=== PATIENT | female | born 1955 | race Caucasian/White ===

== ENCOUNTER → 2016-11-23 | Outpatient (REF) | payer OTHER ==
[2016-11-23 13:56] LABS: ALBUMIN/GLOBULIN RATIO 1.25 (1.00-1.93); ALKALINE PHOSPHATASE 81 U/L (45-117); ALT/SGPT 38 U/L (12-78); ANION GAP 9 MEQ/L (8-16); AST/SGOT 23 U/L (15-37); BILIRUBIN,TOTAL 0.7 MG/DL (0.2-1.0); BLOOD UREA NITROGEN 12 MG/DL (7-18); CARBON DIOXIDE LEVEL 26 MEQ/L (21-32); CHLORIDE LEVEL 107 MEQ/L (98-107); CHOLESTEROL LEVEL 222 MG/DL (<200); CREATININE FOR GFR 0.82 MG/DL (0.55-1.02); GLOMERULAR FILTRATION RATE > 60.0 (>45); GLUCOSE, FASTING 92 MG/DL (80-110); POTASSIUM SERUM 4.5 MEQ/L (3.5-5.1); SODIUM LEVEL 142 MEQ/L (136-145); TOTAL PROTEIN 7.2 GM/DL (6.4-8.2); TRIGLYCERIDES LEVEL 83 MG/DL (<150)
[2016-11-23 14:17] LABS: MEAN CORPUSCULAR HEMOGLOBIN 30.2 pg (27.0-33.0); MEAN CORPUSCULAR VOLUME 91.4 fl (80.0-96.0); RED CELL DISTRIBUTION WIDTH 12.7 % (11.5-14.5); WHITE BLOOD COUNT 7.7 K/mm3 (4.0-10.0)
== END ==
LOC: M SFHCPLAZ 10:15
PROVIDERS: ATTEND Nurse Practitioner Adult Health
DX: Q61.5 Medullary cystic kidney (principal); M81.0 Age-related osteoporosis without current pathological fracture; R73.01 Impaired fasting glucose; E78.00 Pure hypercholesterolemia, unspecified

== ENCOUNTER → 2016-12-28 | Outpatient (CLI) | payer OTHER ==
--- NOTE | 2016-12-28 11:30 | REPMRS ---
Patient History The patient states she had a clinical breast exam in 12/2016. Patient is postmenopausal. Family history of colorectal cancer in niece at age 50 or over. Benign US guided breast biopsy of the left breast. Digital Woman Screen Mammo: December 28, 2016 - Exam #: [id number] Bilateral CC and MLO view(s) were taken. Technologist: Ayala Redman, Technologist Prior study comparison: September 19, 2015, digital woman screen mammo performed at [facility]. May 15, 2013, digital woman screen mammo performed at [facility]. April 07, 2011, bilateral bilat screen digital mammo performed at [facility]. FINDINGS: There are scattered fibroglandular densities. There has been no change in the appearance of the mammogram from the prior studies. There is a mild amount of residual fibroglandular tissue which is fairly symmetric. There is no interval development of dominant mass, architectural distortion, or clustered microcalcification suggestive of malignancy. Stereotactic clip at 3 o'clock left breast close to chest wall and unchanged from priors is again noted. Scattered lymph nodes are seen in the right axilla. There are scattered, small, benign calcifications of doubtful clinical significance. There are benign left breast arterial calcifications noted. No significant changes when compared with prior studies. ASSESSMENT: BI-RADS/ACR category 2 mammogram. Benign finding(s). Recommendation Routine screening mammogram in 1 year (for women over age 40). This mammogram was interpreted with the aid of an FDA-approved computer-aided dectection system. A. Negative x-ray reports should not delay biopsy if a dominant or clinically suspicious mass is present. B. Four to eight percent of cancers are not identified by mammography. C. Adenosis and dense breast may obscure an underlying neoplasm. Electronically Signed By: Ramses Amador MD 12/28/16 [id number]
== END ==
LOC: M WHC 10:04
PROVIDERS: ATTEND Nurse Practitioner Family
DX: Z12.31 Encounter for screening mammogram for malignant neoplasm of breast (principal)

== ENCOUNTER → 2016-12-28 | Outpatient (CLI) | payer OTHER ==
--- NOTE | 2016-12-29 08:25 | DEXA ---
AP SPINE L1 - L4 0.899 -2.4 -1.1 LT FEMUR TOTAL 0.843 -1.3 -0.4 RT FEMUR TOTAL 0.814 -1.5 -0.6 TOTAL BODY TOTAL OTHER DUAL FEMUR FRAX* ASSESSMENT Risk factors: History of adult fracture. 10 year probability of fracture Major osteoporotic fracture 18.6 % Hip fracture 3.1 % COMMENTS: There is low bone density of the spine. There is low bone density of the left hip. There is low bone density of the right hip. The increased density of the spine does not represent a significant change since 04/28/2011. The increased density of the left hip does represent a significant change since 04/28/2011. The decreased density of the right hip does not represent a significant change. The density of the spine has decreased 5.4% since the initial exam on 2007. The spine density has increased 0.3% since the most recent exam on 04/28/2011. The density of the left hip has decreased 6.4% since the initial exam on 2007. The density of the left hip has increased 2.2% since the most recent exam on . The density of the right hip has decreased 4.8% since the initial exam on 2007. The density of the right hip has decreased 0.2% since the most recent exam on . FOLLOW-UP: Recommendation for the next bone density exam: 2 years. YOHANNES
== END ==
LOC: M WHC 10:06
PROVIDERS: ATTEND Internal Medicine
DX: M81.0 Age-related osteoporosis without current pathological fracture (principal)

== ENCOUNTER → 2017-08-30 | Outpatient (REF) | payer OTHER ==
[2017-08-30 13:03] LABS: MEAN CORPUSCULAR HEMOGLOBIN 29.9 pg (27.0-33.0); MEAN CORPUSCULAR HGB CONC 32.8 g/dl (32.0-36.5); MEAN CORPUSCULAR VOLUME 91.2 fl (80.0-96.0); PLATELET COUNT, AUTOMATED 240 10^3/uL (150-450); RED CELL DISTRIBUTION WIDTH 12.6 % (11.5-14.5); WHITE BLOOD COUNT 6.5 10^3/uL (4.0-10.0)
[2017-08-30 13:31] LABS: ALBUMIN 3.9 GM/DL (3.2-5.2); ALKALINE PHOSPHATASE 76 U/L (45-117); ALT/SGPT 33 U/L (12-78); ANION GAP 9 MEQ/L (8-16); AST/SGOT 20 U/L (7-37); BILIRUBIN,TOTAL 0.7 MG/DL (0.2-1.0); BLOOD UREA NITROGEN 12 MG/DL (7-18); CALCIUM LEVEL 9.3 MG/DL (8.8-10.2); CARBON DIOXIDE LEVEL 29 MEQ/L (21-32); CHLORIDE LEVEL 106 MEQ/L (98-107); CHOLESTEROL LEVEL 248 MG/DL (<200); CREATININE FOR GFR 0.78 MG/DL (0.55-1.02); GLOMERULAR FILTRATION RATE > 60.0 (>45); GLUCOSE, FASTING 92 MG/DL (80-110); POTASSIUM SERUM 4.1 MEQ/L (3.5-5.1); SODIUM LEVEL 144 MEQ/L (136-145); TOTAL PROTEIN 6.5 GM/DL (6.4-8.2); TRIGLYCERIDES LEVEL 99 MG/DL (<150)
== END ==
LOC: M SFHCPLAZ 08:24
PROVIDERS: ATTEND Internal Medicine
DX: Z00.00 Encounter for general adult medical examination without abnormal findings (principal); Q61.5 Medullary cystic kidney; N20.0 Calculus of kidney; E78.00 Pure hypercholesterolemia, unspecified

== ENCOUNTER → 2017-12-14 | Outpatient (REF) | payer OTHER ==
[2017-12-14 14:22] LABS: APPEARANCE, URINE HAZY (CLEAR); BACTERIA, URINE AUTO NEGATIVE (NEGATIVE); BILIRUBIN, URINE AUTO NEGATIVE (NEGATIVE); BLOOD, URINE BLOOD 1+ (NEGATIVE); CALCIUM OXALATE CRYSTALS LARGE; COLOR, URINE YELLOW (YELLOW); GLUCOSE, URINE (UA) AUTO NEGATIVE (NEGATIVE); KETONE, URINE AUTO NEGATIVE (NEGATIVE); LEUKOCYTE ESTERASE, URINE AUTO 1+ (NEGATIVE); NITRITE, URINE AUTO NEGATIVE (NEGATIVE); PROTEIN, URINE AUTO NEGATIVE (NEGATIVE); RBC, URINE AUTO 3 /HPF (0-3); SPECIFIC GRAVITY URINE AUTO 1.014 (1.002-1.035); SQUAMOUS EPITHELIAL CELL UR AU 0 /HPF (0-6); UROBILINOGEN, URINE AUTO 0.2 mg/dL (0.0-2.0); WBC, URINE AUTO 12 /HPF (0-3)
== END ==
LOC: M SMT 13:17
DX: R10.9 Unspecified abdominal pain (principal)
CPT/HCPCS: 81001

== ENCOUNTER → 2017-12-15 | Outpatient (CLI) | payer OTHER | LOC: M RAD 14:00 | DX: R10.9 Unspecified abdominal pain (principal); Q61.5 Medullary cystic kidney; Z87.442 Personal history of urinary calculi ==

== ENCOUNTER → 2018-01-01 | Outpatient (CLI) | payer OTHER ==
[2018-01-01 14:03] LABS: HEMATOCRIT 43.1 % (36.0-47.0); HEMOGLOBIN 14.4 g/dl (12.0-15.5); MEAN CORPUSCULAR HEMOGLOBIN 30.4 pg (27.0-33.0); MEAN CORPUSCULAR HGB CONC 33.4 g/dl (32.0-36.5); MEAN CORPUSCULAR VOLUME 90.9 fl (80.0-96.0); PLATELET COUNT, AUTOMATED 242 10^3/uL (150-450); RED BLOOD COUNT 4.74 10^6/uL (4.00-5.40); RED CELL DISTRIBUTION WIDTH 12.6 % (11.5-14.5); WHITE BLOOD COUNT 8.2 10^3/uL (4.0-10.0)
[2018-01-01 14:19] LABS: ANION GAP 7 MEQ/L (8-16); BLOOD UREA NITROGEN 20 MG/DL (7-18); CALCIUM LEVEL 9.2 MG/DL (8.8-10.2); CARBON DIOXIDE LEVEL 30 MEQ/L (21-32); CHLORIDE LEVEL 105 MEQ/L (98-107); GLOMERULAR FILTRATION RATE > 60.0 (>45); GLUCOSE, FASTING 111 MG/DL (70-100); INR 0.87; POTASSIUM SERUM 3.7 MEQ/L (3.5-5.1); PROTHROMBIN TIME 11.9 SECONDS (12.4-14.5); SODIUM LEVEL 142 MEQ/L (136-145)
[2018-01-01 14:20] LABS: PARTIAL THROMBOPLASTIN TIME 26.6 SECONDS (26.8-37.9)
== END ==
LOC: M LAB 12:47
DX: Z01.812 Encounter for preprocedural laboratory examination (principal); N13.2 Hydronephrosis with renal and ureteral calculous obstruction
CPT/HCPCS: 71046

== ENCOUNTER → 2019-07-24 | Outpatient (CLI) | payer MEDICARE, OTHER ==
[~2019-07-24] MED LIST: BACT800T5 PO; FLOM0.4C39 PO; HYDR12.55 PO; OXYC1TAB23 PO; TYLE650T35 PO
--- NOTE | 2019-07-24 14:28 | REPMRS ---
Patient History The patient states she had a clinical breast exam in 07/2019. Patient is postmenopausal. Family history of colorectal cancer at age 40 in niece. Benign US guided breast biopsy of the left breast. 3D TOMOSYNTHESIS WAS PERFORMED. [facility] lifetime risk for breast cancer is 5,4%. Digital Woman Screen Mammo: July 24, 2019 - Exam #: [id number] Bilateral CC and MLO view(s) were taken. Technologist: Estella Rivera Technologist Prior study comparison: December 28, 2016, digital woman screen mammo performed at [facility]. September 19, 2015, digital woman screen mammo performed at [facility]. FINDINGS: The breast tissue is heterogeneously dense. This may lower the sensitivity of mammography. There has been no change in the appearance of the mammogram from the prior studies. There is a moderate amount of residual fibroglandular tissue which is fairly symmetric. There is no interval development of dominant mass, areas of architectural distortion, or clustered microcalcification typical of malignancy. Assessment: BI-RADS/ACR category 1 mammogram. Negative Mammogram. Recommendation Routine screening mammogram in 1 year (for women over age 40). This mammogram was interpreted with the aid of an FDA-approved computer-aided dectection system. Electronically Signed By: Jose Antonio De Leon MD 07/24/19 [id number]
== END ==
LOC: M WHC 13:25
PROVIDERS: ATTEND Internal Medicine
DX: Z01.419 Encounter for gynecological examination (general) (routine) without abnormal findings (principal); Z12.31 Encounter for screening mammogram for malignant neoplasm of breast; Z78.0 Asymptomatic menopausal state; Z86.018 Personal history of other benign neoplasm
CPT/HCPCS: 77063; 77067; G0101; G0123

== ENCOUNTER → 2019-07-24 | Outpatient (REF) | payer MEDICARE, OTHER | LOC: M SFHCWAGY 13:55 | PROVIDERS: ATTEND Nurse Practitioner Family | DX: Z12.4 Encounter for screening for malignant neoplasm of cervix (principal); N95.2 Postmenopausal atrophic vaginitis ==

== ENCOUNTER → 2020-03-18 | Outpatient (CLI) | payer MEDICARE, OTHER ==
--- NOTE | 2020-03-21 13:14 | DEXA ---
AP SPINE L1 - L4 0.840 -2.9 -1.2 LT FEMUR TOTAL 0.827 -1.7 -0.1 LT NECK 0.757 -2.0 -0.5 RT FEMUR TOTAL 0.799 -1.7 -0.4 RT NECK 0.716 -2.3 -0.8 TOTAL BODY TOTAL OTHER COMMENTS: There is low bone density of the hips. There is osteoporosis of the spine. The density of the spine is decreased 11.6% since the initial exam on 11/24/2007. The decreased 6.6% since the most recent exam on 12/28/2016. The density of the left hip has decreased 8.2% since the initial exam on 11/24/2007. The density of the left hip has decreased 1.9% since the most recent exam on 12/28/2016. The density of the right hip has decreased 6.5% since the initial exam on 11/24/2007. The density of the right hip has increased 1.8% since the most recent exam on 12/28/2016. FOLLOW-UP: Recommendation for the next bone density exam: 2 years. YOHANNES
== END ==
LOC: M WHC 13:32
PROVIDERS: ATTEND Internal Medicine
DX: M81.0 Age-related osteoporosis without current pathological fracture (principal); M85.851 Other specified disorders of bone density and structure, right thigh; M85.852 Other specified disorders of bone density and structure, left thigh

== ENCOUNTER → 2020-04-10 | Outpatient (REF) | payer MEDICARE, OTHER ==
[~2020-04-10] MED LIST changes: +ACET650T61 PO; -TYLE650T35 PO
[2020-04-10 13:38] LABS: BILIRUBIN,TOTAL 0.8 MG/DL (0.2-1.0); CALCIUM LEVEL 9.5 MG/DL (8.8-10.2); CHOLESTEROL RISK RATIO 3.935 (<5); CREATININE FOR GFR 1.05 MG/DL (0.55-1.30); GLOMERULAR FILTRATION RATE 55.7 (>45); MAGNESIUM LEVEL 2.2 MG/DL (1.8-2.4); POTASSIUM SERUM 4.1 MEQ/L (3.5-5.1); TOTAL PROTEIN 7.3 GM/DL (6.4-8.2)
[2020-04-10 13:47] LABS: TOTAL 25(OH) VITAMIN D 31.5 NG/ML (30.0-100.0)
[2020-04-10 13:49] LABS: HEMOGLOBIN A1c 6.4 %
== END ==
LOC: M PLALAB 10:33
PROVIDERS: ATTEND Internal Medicine
DX: Q61.5 Medullary cystic kidney (principal); R73.01 Impaired fasting glucose; E78.00 Pure hypercholesterolemia, unspecified; M81.0 Age-related osteoporosis without current pathological fracture

== ENCOUNTER → 2020-07-03 | Outpatient (REF) | payer MEDICARE, OTHER | LOC: M WUC 12:17 | PROVIDERS: ATTEND Physician Assistant | DX: R30.0 Dysuria (principal) ==

== ENCOUNTER → 2020-07-25 | Outpatient (CLI) | payer MEDICARE, OTHER ==
--- NOTE | 2020-07-25 14:23 | REPMRS ---
Patient History The patient states she had a clinical breast exam in 07/2020. Patient is postmenopausal and has history of other cancer at age 43. Family history of colorectal cancer at age 40 in niece. Benign US guided breast biopsy of the left breast. No Hormone Replacement Therapy 3D TOMOSYNTHESIS WAS PERFORMED. [facility] lifetime risk for breast cancer is 5.1 %. [place] breast density b. Digital Woman Screen Mammo: July 25, 2020 - Exam #: [id number] Bilateral CC and MLO view(s) were taken. Technologist: Ayala Redman, Technologist Prior study comparison: July 24, 2019, bilateral digital woman screen mammo performed at [facility]. December 28, 2016, digital woman screen mammo performed at [facility]. FINDINGS: The breast tissue is heterogeneously dense. This may lower the sensitivity of mammography. There has been no change in the appearance of the mammogram from the prior studies. There is a moderate amount of residual fibroglandular tissue which is fairly symmetric. There is no interval development of dominant mass, areas of architectural distortion, or clustered microcalcification typical of malignancy. Assessment: BI-RADS/ACR category 1 mammogram. Negative Mammogram. Recommendation Routine screening mammogram in 1 year (for women over age 40). This mammogram was interpreted with the aid of an FDA-approved computer-aided dectection system. Electronically Signed By: Jose Antonio De Leon MD 07/25/20 [id number]
== END ==
LOC: M WHC 13:06
PROVIDERS: ATTEND Nurse Practitioner Family
DX: Z12.31 Encounter for screening mammogram for malignant neoplasm of breast (principal); Z78.0 Asymptomatic menopausal state; Z85.89 Personal history of malignant neoplasm of other organs and systems; Z86.018 Personal history of other benign neoplasm
CPT/HCPCS: 77063; 77067; G0463

== ENCOUNTER → 2020-09-03 | Outpatient (CLI) | payer SELFPAY | LOC: M LABSMTC 09:39 | PROVIDERS: ATTEND Pediatrics | DX: Z20.828 Contact with and (suspected) exposure to other viral communicable diseases (principal) ==

== ENCOUNTER → 2021-01-17 | Outpatient (REF) | payer MEDICARE, OTHER ==
[2021-01-17 11:11] LABS: HEMOGLOBIN A1c 6.1 %
[2021-01-17 11:18] LABS: ALBUMIN 4.2 GM/DL (3.2-5.2); ALT/SGPT 47 U/L (12-78); BILIRUBIN,TOTAL 0.9 MG/DL (0.2-1.0); BLOOD UREA NITROGEN 21 MG/DL (7-18); CALCIUM LEVEL 9.9 MG/DL (8.8-10.2); CARBON DIOXIDE LEVEL 32 MEQ/L (21-32); CHLORIDE LEVEL 101 MEQ/L (98-107); CHOLESTEROL LEVEL 220 MG/DL (<200); CHOLESTEROL RISK RATIO 3.548 (<5); CREATININE FOR GFR 0.88 MG/DL (0.55-1.30); GLOMERULAR FILTRATION RATE > 60.0 (>45); GLUCOSE, FASTING 117 MG/DL (70-100); HDL CHOLESTEROL 62 MG/DL (>40); LDL CHOLESTEROL 146 MG/DL (<100); MALB URINE SIEMENS 24.1 MG/L; MAU/CREAT RATIO 9.8 MCG/MG (0.0-30.0); NON-HDL-C 158 MG/DL; POTASSIUM SERUM 3.9 MEQ/L (3.5-5.1); SODIUM LEVEL 139 MEQ/L (136-145); TOTAL PROTEIN 6.9 GM/DL (6.4-8.2); TRIGLYCERIDES LEVEL 59 MG/DL (<150)
== END ==
LOC: M PLALAB 08:05
PROVIDERS: ATTEND Internal Medicine
DX: E78.00 Pure hypercholesterolemia, unspecified (principal); R73.01 Impaired fasting glucose

== ENCOUNTER → 2022-08-17 | Outpatient (CLI) | payer MEDICARE, OTHER ==
[2022-08-17 12:41] LABS: BASO # 0.1 10^3/uL (0.0-0.2); BASO % 1.1 % (0.0-1.0); EOS # 0.3 10^3/uL (0.0-0.5); EOS % 3.9 % (0.0-3.0); HEMATOCRIT 44.7 % (36.0-47.0); HEMOGLOBIN 14.6 g/dl (12.0-15.5); LYMPH # 1.5 10^3/uL (1.5-5.0); LYMPH % 22.5 % (24.0-44.0); MEAN CORPUSCULAR HEMOGLOBIN 30.1 pg (27.0-33.0); MEAN CORPUSCULAR HGB CONC 32.7 g/dl (32.0-36.5); MEAN CORPUSCULAR VOLUME 92.2 fl (80.0-96.0); MONO # 0.4 10^3/uL (0.0-0.8); MONO % 6.7 % (2.0-8.0); NEUTROPHILS # 4.3 10^3/uL (1.5-8.5); NEUTROPHILS % 65.3 % (36.0-66.0); PLATELET COUNT, AUTOMATED 235 10^3/uL (150-450); RED BLOOD COUNT 4.85 10^6/uL (4.00-5.40); WHITE BLOOD COUNT 6.6 10^3/uL (4.0-10.0)
[2022-08-17 13:06] LABS: HEMOGLOBIN A1c 6.1 %
[2022-08-17 13:12] LABS: ALBUMIN 3.7 GM/DL (3.2-5.2); ALT/SGPT 33 U/L (12-78); BILIRUBIN,TOTAL 0.7 MG/DL (0.2-1.0); BLOOD UREA NITROGEN 17 MG/DL (7-18); CALCIUM LEVEL 8.9 MG/DL (8.8-10.2); CARBON DIOXIDE LEVEL 28 MEQ/L (21-32); CHLORIDE LEVEL 109 MEQ/L (98-107); CHOLESTEROL LEVEL 185 MG/DL (<200); CREATININE FOR GFR 0.83 MG/DL (0.55-1.30); GLOMERULAR FILTRATION RATE > 60.0 (>45); GLUCOSE, FASTING 100 MG/DL (70-100); HDL CHOLESTEROL 64 MG/DL (>40); LDL CHOLESTEROL 103 MG/DL (<100); NON-HDL-C 121 MG/DL; SODIUM LEVEL 142 MEQ/L (136-145); TOTAL PROTEIN 6.5 GM/DL (6.4-8.2); TRIGLYCERIDES LEVEL 90 MG/DL (<150)
[2022-08-17 13:32] LABS: MALB URINE SIEMENS 15.4 MG/L; MAU/CREAT RATIO 6.4 MCG/MG (0.0-30.0)
== END ==
LOC: M PLALAB 08:54
PROVIDERS: ATTEND Internal Medicine Hematology
DX: Q61.5 Medullary cystic kidney (principal); E78.00 Pure hypercholesterolemia, unspecified; R73.01 Impaired fasting glucose; M81.0 Age-related osteoporosis without current pathological fracture; Z11.59 Encounter for screening for other viral diseases
CPT/HCPCS: 36415; 80053; 80061; 82043; 82306; 83036; 85025; G0472

== ENCOUNTER → 2023-07-30 | Outpatient (CLI) | payer MEDICARE, OTHER | LOC: M WUC 10:13 | PROVIDERS: ATTEND Nurse Practitioner Family | DX: M79.662 Pain in left lower leg (principal) ==

== ENCOUNTER → 2025-02-06 | Outpatient (CLI) | payer MEDICARE, OTHER ==
[~2025-02-06] MED LIST changes: -FLOM0.4C39 PO; +TAMS-18 PO
[2025-02-06 14:32] LABS: HEMATOCRIT 44.1 % (36.0-47.0)
[2025-02-06 14:38] LABS: ALBUMIN 3.8 G/DL (3.2-5.2); BILIRUBIN,TOTAL 0.8 MG/DL (0.3-1.2); CALCIUM LEVEL 9.2 MG/DL (8.3-10.6); CHOLESTEROL RISK RATIO 2.95 (<5); CREATININE FOR GFR 0.8 MG/DL (0.55-1.30); GLOMERULAR FILTRATION RATE 78.7 (>39); HDL CHOLESTEROL 58.6 MG/DL (>40); NON-HDL-C 114.4 MG/DL; POTASSIUM SERUM 4.2 MMOL/L (3.5-5.1); TOTAL PROTEIN 6.6 G/DL (5.7-8.2)
[2025-02-06 14:47] LABS: BASO # 0.1 10^3/uL (0.0-0.2); BASO % 0.8 % (0.0-1.0); EOS # 0.4 10^3/uL (0.0-0.5); EOS % 6.2 % (0.0-3.0); HEMATOCRIT 43.9 % (36.0-47.0); HEMOGLOBIN 14.4 g/dl (12.0-15.5); LYMPH # 1.6 10^3/uL (1.5-5.0); MEAN CORPUSCULAR HEMOGLOBIN 30.6 pg (27.0-33.0); MEAN CORPUSCULAR HGB CONC 32.8 g/dl (32.0-36.5); MEAN CORPUSCULAR VOLUME 93.2 fl (80.0-96.0); MONO # 0.6 10^3/uL (0.0-0.8); MONO % 8.3 % (2.0-8.0); NEUTROPHILS # 4.4 10^3/uL (1.5-8.5); NEUTROPHILS % 61.4 % (36.0-66.0); PLATELET COUNT, AUTOMATED 232 10^3/uL (150-450); RED BLOOD COUNT 4.71 10^6/uL (4.00-5.40); WHITE BLOOD COUNT 7.1 10^3/uL (4.0-10.0)
[2025-02-06 15:10] LABS: HEMOGLOBIN A1c 6.6 % (4.0-6.0)
== END ==
LOC: M PLALAB 09:43
PROVIDERS: ATTEND Student in an Organized Health Care Education/Training Program
DX: Z76.89 Persons encountering health services in other specified circumstances (principal); E78.00 Pure hypercholesterolemia, unspecified